=== PATIENT | female | born 2000 | race Hispanic/Latino ===

== ENCOUNTER 2020-08-21 14:38 | Outpatient (CLI) | payer OTHER ==
--- NOTE | 2020-08-21 16:35 | RAD ---
INDEX FINGER RIGHT HAND: 08/21/20 Three views. HISTORY: Injury index finger. FINDINGS: No fracture or dislocation. No osseous abnormality identified. IMPRESSION: No acute findings. POS: [facility]
== END 2020-08-21 14:39 | disposition home or self-care (01) ==
LOC: BICRAD 14:38
PROVIDERS: ATTEND Family Medicine
DX: S69.91XA Unspecified injury of right wrist, hand and finger(s), initial encounter (principal)